=== PATIENT | male | born 1940 | race Caucasian/White ===

== ENCOUNTER 2019-03-19 15:20 | Observation (INO) | payer MEDICARE ==
[2019-03-19 16:45] LABS: #Basophils 0.2 thou/uL (0.0-0.2); #Eosinphils 0.1 thou/uL (0.0-0.7); #Lymphocytes 2.9 thou/uL (1.20-3.40); #Monocytes 0.9 thou/uL (0.11-0.59); #Neutrophils 4.1 thou/uL (1.40-6.50); %Basophils 1.9 % (0.0-1.0); %Eosinophils 1.6 % (0.0-10.0); %Lymphocytes 35.6 % (21.0-51.0); %Monocytes 11.1 % (0.0-10.0); %Neutrophils 49.7 % (42.0-75.0); Hemoglobin 12.2 g/dL (14.0-18.0); Mean Corpuscular HGB CONC 34.1 g/dL (32.0-36.0); Mean Corpuscular Hemoglobin 30.8 pg (27.0-31.0); Mean Corpuscular Volume 90.1 fL (78.0-98.0); Mean Platelet Volume 11.7 fL (7.4-10.4); Platelet Count 108 thou/uL (130-400); RBC Distribution Width 12.4 % (11.5-14.5); Red Blood Cell (RBC) Count 3.96 mill/uL (4.70-6.10); White Blood Cell (WBC) Count 8.3 thou/uL (4.8-10.8)
--- NOTE | 2019-03-19 16:55 | CT ---
Head CT without contrast 03/19/2019: HISTORY: Partial vision loss of the right eye TECHNIQUE: Axial CT imaging at 5 mm intervals from vertex through skull base without contrast FINDINGS: The visualized paranasal sinuses and mastoid air cells are well aerated. No displaced melania rial fracture. No intracranial hemorrhage, midline shift, or mass effect. Mild cerebral volume loss. IMPRESSION: No intracranial hemorrhage. If there is clinical concern for acute infarction, follow-up brain MRI suggested.
[2019-03-19 16:58] LABS: PTT 25.8 SEC (22.9-36.1); Prothrombin Time 13.2 SEC (12.0-14.7)
[2019-03-19] MEDS ORDERED: Aspirin Chewable 81 MG TAB ONE (17:01)
[2019-03-19 17:06] LABS: ALT (SGPT) 8 U/L (8-55); AST (SGOT) 12 U/L (5-34); Albumin 3.8 g/dL (3.4-4.8); Alkaline Phosphatase 50 U/L (40-110); Anion Gap 10 mmol/L (10-20); BUN (Urea Nitrogen) 26 mg/dL (8.4-25.7); Bilirubin, Total 0.5 mg/dL (0.2-1.2); Calc. Creatinine Clearance 0 mL/min (70-130); Carbon Dioxide 28 mmol/L (23-31); Chloride 107 mmol/L (98-107); Estimated GFR-MDRD 43; Globulin 2.6 g/dL (2.4-3.5); Glucose 77 mg/dL (83-110); Potassium 3.9 mmol/L (3.5-5.1); Protein, Total 6.4 g/dL (5.8-8.1); Sodium 141 mmol/L (136-145)
[2019-03-19 17:23] LABS: Troponin I 0.084 ng/mL (< 0.028)
[2019-03-19] MEDS ORDERED: Atorvastatin Calcium 40 MG TAB PO SCH (21:00)
--- NOTE | 2019-03-19 22:13 | HP ---
CHIEF COMPLAINT: Blurry vision. HISTORY OF PRESENT ILLNESS: The patient is a 78-year-old male with a history of hypertension and hypercholesteremia, who presents to the hospital, actually was sent from the ophthalmology clinic for retinal artery occlusion which was causing him to have blurry vision. The patient states that he was watching his game yesterday, started having some blurry vision on his right eye. He got up and walked around, his vision got improved and then his blurry vision came back. 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 The patient was found to have retinal artery occlusion. The patient states that he does have some issues with his right eye and he has been getting injections in the past, however, he is unable to tell me the diagnosis. He denies any numbness, tingling, any generalized weakness, any slurred speech. The patient stated that this has never happened to him in the past. PAST MEDICAL HISTORY: Hyperlipidemia, hypertension, CLL, and bradycardia. PAST SURGICAL HISTORY: He has had some skin cancer removal surgery. SOCIAL HISTORY: He denies any alcohol use, drug use, or smoking history. He lives at home with his family and he is a full code. ALLERGIES: NO KNOWN DRUG ALLERGIES. MEDICATIONS: He takes, 1. Amlodipine 5 mg twice a day. 2. Omeprazole 10 mg daily. 3. Atorvastatin 20 mg daily. 4. Imbruvica 140 mg daily. 5. Acitretin 25 mg daily. 6. Heliocare 240 mg daily. 7. Hydralazine 20 mg b.i.d. REVIEW OF SYSTEMS: All negative except for the ones mentioned above in the HPI. FAMILY HISTORY: Mother had liver cancer. Father had CAD. PHYSICAL EXAMINATION: VITAL SIGNS: Temperature of 98.8, 100% on room air, respirations 16, pulse was 50, blood pressure 170/71. GENERAL: He is awake, alert, and oriented x3. Does not appear in any distress. HEENT: He does have . Pupils are reactive to light, however, the right sluggish than the left. CV: S1 and S2 present. No murmurs, rubs, or gallops. LUNGS: Clear to auscultation. No rhonchi or wheezes noted. ABDOMEN: Soft, nontender. Bowel sounds are present x2. NEUROVASCULAR: Neurovascular-pike, no focal deficits noted. Cranial nerves 3 through 11 are intact. SKIN: No cuts, lesions or bruises noted. LABORATORY RESULTS: As of the following; WBCs of 8.3, hemoglobin of 12.2, hematocrit of 35.7, platelets of 108. Chemistry; sodium of 141, potassium of 3.9, BUN 24, creatinine 1.56. Troponin is 0.084. He did have a CT head, which was negative. EKG showed some T-wave abnormalities, however, no acute abnormalities noted. Sinus vicky also was noted. ASSESSMENT AND PLAN: The patient is a very pleasant 78-year-old male, who comes into the hospital for blurry vision. 1. 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 We will admit patient to tele, will do a stroke workup. We will do an MRI of brain. We will get atorvastatin. We will get Neurology to see this patient. MRI brain, echo and carotid Dopplers. 2. Hypertension. We will continue his home medications. 3. History of chronic lymphocytic leukemia. His WBCs are normal. We will continue his home medications. 4. Deep venous thrombosis prophylaxis. We will put the patient on SCDs. If patient has been on aspirin, we will add Plavix and also increase the statin from 20 to 40, and get a lipid panel in the morning. Job ID: [id number]
[2019-03-20] MEDS ORDERED: Aspirin 81 mg Enteric Coated Tablet PO SCH (09:00)
[2019-03-20] MEDS ORDERED: Clopidogrel Bisulfate 75 MG TAB PO SCH (09:00)
--- NOTE | 2019-03-21 02:29 | DIS ---
DATE OF ADMISSION: 03/20/2019 DATE OF DISCHARGE: 03/20/2019 DISCHARGE DIAGNOSES: 1. Central retinal artery occlusion. 2. Hypertension. 3. History of chronic lymphocytic leukemia. 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 The patient was admitted by Dr. Desai, however when getting to his room, reported that he had claustrophobia to the point that he could not tolerate staying even in the largest room on the unit and ultimately was given options to try to help medicate his claustrophobia versus leaving against medical advice, at which time, he could follow up with his primary care provider the following day to have further outpatient evaluation and ultimately, the patient chose to leave against medical advice. Job ID: [id number]
--- NOTE | 2019-03-24 14:39 | EKG ---
Test Reason : Blood Pressure : / mmHG Vent. Rate : 054 BPM Atrial Rate : 054 BPM P-R Int : 224 ms QRS Dur : 102 ms QT Int : 486 ms P-R-T Axes : 053 -57 170 degrees QTc Int : 460 ms Sinus bradycardia with 1st degree A-V block Possible Left atrial enlargement Incomplete right bundle branch block Left anterior fascicular block Cannot rule out Inferior infarct , age undetermined Abnormal ECG Confirmed by JACQUI KOCH DO ([id number]), editor index ROMINA SIMMS ([id number]) on 03/24/2019 2:38:48 PM Referred By: Confirmed By:JACQUI KOCH DO
== END 2019-03-20 05:30 | disposition left against medical advice (07) ==
LOC: ERS 15:20 → 2SE 03-20 05:28
PROVIDERS: ADMIT Internal Medicine; ATTEND Internal Medicine
DX: H34.11 Central retinal artery occlusion, right eye (principal); C91.10 Chronic lymphocytic leukemia of B-cell type not having achieved remission; E78.5 Hyperlipidemia, unspecified; F40.240 Claustrophobia; I10 Essential (primary) hypertension; I25.10 Atherosclerotic heart disease of native coronary artery without angina pectoris; F17.220 Nicotine dependence, chewing tobacco, uncomplicated; Z79.899 Other long term (current) drug therapy
CPT/HCPCS: 70450; 80053; 84484; 85025; 85610; 85730; 93005; 99283; 99285; G0378

== ENCOUNTER 2019-03-20 12:15 | Emergency (ER) | payer MEDICARE | END 2019-03-20 13:35 | disposition home or self-care (01) | LOC: ERS 12:15 | DX: H34.11 Central retinal artery occlusion, right eye (principal); I25.10 Atherosclerotic heart disease of native coronary artery without angina pectoris; E78.5 Hyperlipidemia, unspecified; E78.00 Pure hypercholesterolemia, unspecified; I10 Essential (primary) hypertension; F17.220 Nicotine dependence, chewing tobacco, uncomplicated; Z79.899 Other long term (current) drug therapy; Z79.82 Long term (current) use of aspirin ==

== ENCOUNTER 2019-03-30 12:30 | Outpatient (CLI) | payer MEDICARE ==
--- NOTE | 2019-03-30 13:26 | ULT ---
CAROTID ULTRASOUND WITH GRAYSCALE AND DOPPLER DUPLEX COLORFLOW IMAGING SPECTRAL ANALYSIS PERFORMED: INDICATION: History of partial vision loss right eye, central retinal artery occlusion. FINDINGS: There is scattered mild atherosclerotic calcification of the carotid arteries. PEAK SYSTOLIC VELOCITY (CM/S): Right CCA 109 Left CCA 132 Right ICA 87 Left ICA 90 There is antegrade bilateral flow within the visualized bilateral vertebral arteries. IMPRESSION: 1. No hemodynamically significant stenosis of the right internal carotid artery. 2. No hemodynamically significant stenosis of the left internal carotid artery. POS: C
== END 2019-03-30 12:31 | disposition home or self-care (01) ==
LOC: ULT 12:30
PROVIDERS: ATTEND Family Medicine
DX: H34.11 Central retinal artery occlusion, right eye (principal); I08.8 Other rheumatic multiple valve diseases
CPT/HCPCS: 93306; 93880

== ENCOUNTER 2019-04-04 07:32 | Outpatient (CLI) | payer MEDICARE ==
--- NOTE | 2019-04-04 09:52 | MRI ---
MRI BRAIN WITH AND WITHOUT CONTRAST: HISTORY: Central retinal artery occlusion of the right eye. Pressure behind the right eye x5 weeks. COMPARISON: None. FINDINGS: BRAIN MRI Hemorrhage: No parenchymal hemorrhage. No extra-axial hematoma. Calvarium: Appropriate T1 marrow signal intensity. Midline brain parenchyma: Unremarkable. Cerebrum: No parenchymal mass, mass effect or midline shift. Age appropriate atrophy. Cortical zavala-w marie matter differentiation is preserved. T2 and FLAIR white matter hyperintensities due to chronic small vessel ischemic change. Ventricles: No evidence of hydrocephalus. Sinuses and mastoid air cells: Adequate aeration. Diffusion: Central arterial flow is maintained. Absent restricted diffusion. Postcontrast images: No pathologic enhancement of the brain parenchyma. ORBIT MRI Symmetric signal intensity of the optic nerves and ocular rectus muscles. No abnormal enhancement. Gerardo th globes are intact. Retrobulbar fat is preserved. Symmetric signal intensity. The optic chiasm, prechiasmatic optic nerves, intraorbital and intracanalicular optic nerves have symmetric signal inte nsity. IMPRESSION: 1. Unremarkable pre and post contrast orbit MRI. 2. Age appropriate atrophy. Chronic small vessel ischemic changes. 3. Absent restricted diffusion. No acute infarct. 4. No pathologic enhancement of the brain parenchyma. Transcribed Date/Time: 04/04/2019 10:02 AM
== END 2019-04-04 07:33 | disposition home or self-care (01) ==
LOC: BICMRI 07:32
PROVIDERS: ATTEND Family Medicine
DX: H34.11 Central retinal artery occlusion, right eye (principal); I67.82 Cerebral ischemia
CPT/HCPCS: 70553

== ENCOUNTER 2022-04-01 08:53 | Outpatient (CLI) | payer MEDICARE ==
[2022-04-01] MEDS ORDERED: Iopamidol 370 76% 100 ML VIAL ONE (14:00)
== END 2022-04-01 08:54 | disposition home or self-care (01) ==
LOC: CT 08:53
PROVIDERS: ATTEND Internal Medicine Medical Oncology
DX: C91.10 Chronic lymphocytic leukemia of B-cell type not having achieved remission (principal); E27.8 Other specified disorders of adrenal gland; N28.1 Cyst of kidney, acquired; N20.0 Calculus of kidney; R59.0 Localized enlarged lymph nodes; N40.0 Benign prostatic hyperplasia without lower urinary tract symptoms; N21.0 Calculus in bladder
CPT/HCPCS: 71260; 74177; 82565; Q9967

== ENCOUNTER 2022-09-13 12:25 | Outpatient (CLI) | payer MEDICARE ==
[~2022-09-13 12:25] MED LIST: Iopamidol 370 76% 100 ML VIAL ONE
== END 2022-09-13 12:26 | disposition home or self-care (01) ==
LOC: BICCT 12:25
PROVIDERS: ATTEND Internal Medicine Medical Oncology
DX: C91.10 Chronic lymphocytic leukemia of B-cell type not having achieved remission (principal); R59.0 Localized enlarged lymph nodes
CPT/HCPCS: 71260; 74177; 82565; Q9967